=== PATIENT | female | born 1950 | race Caucasian/White ===

== ENCOUNTER 2023-05-04 19:12 | Emergency (ER) | payer MEDICARE, OTHER, SELFPAY ==
[2023-05-04 19:32] VITALS: BP 165/90; PULSE 105; RESP 18; TEMP 37; O2SAT 96; BMI 28.8
--- NOTE | 2023-05-04 19:34 | ED.URI1 ---
HPI - URI/Sore Throat General Chief Complaint: Shortness of Breath/Dyspnea Stated Complaint: URTI Time Seen by Provider: 05/04/23 19:27 History of Present Illness HPI Narrative: 72-year-old female presents to the emergency department for dry cough. She has had it for 2 to 3 days and she being seen here with her who has the same symptoms. She is worried about having COVID. No vomiting or diarrhea. She has not had a known fever. Related Data Home Medications Medication Instructions Recorded Confirmed amlodipine 5 mg tablet 5 mg PO DAILY 05/04/23 05/04/23 betamethasone dipropionate 0.05 % 1 applic topical DAILY PRN skin 05/04/23 05/04/23 topical ointment irritation lisinopril PO DAILY 05/04/23 metformin 500 mg tablet 500 mg PO DAILY 05/04/23 05/04/23 Previous Rx's Medication Instructions Recorded nirmatrelvir 300 mg (150 mg See Rx Instructions PO .COMPLEX 05/04/23 x2)-ritonavir 100 mg tablet,dose #30 ea pack (Paxlovid) Allergies Allergy/AdvReac Type Severity Reaction Status Date / Time No Known Drug Allergies Allergy Verified 05/04/23 19:36 Review of Systems ROS Narrative A ten point review of systems is negative except as noted above. PFSH PFSH Social History Smoking status: Current every day smoker Exam Narrative Exam Narrative: Nurses note and vital signs reviewed and patient is not hypoxic. General: The patient appears well and in no apparent distress. Patient is sitting on the examination chair. She is speaking in full sentences Skin: Warm, dry, no pallor noted. There is no rash noted. Head: Normocephalic, atraumatic Eye: Normal conjunctiva, no drainage Ears, Nose, Mouth, and Throat: oral mucosa is moist. Nares patent. Cardiovascular: Regular Rate and Rhythm Respiratory: Patient is in no distress, no accessory muscle use, lungs are clear to auscultation, no wheezing, rales or rhonchi Back: non-tender GI: Soft and nontender Musculoskeletal: The patient has no evidence of calf tenderness, no pitting edema, symmetrical pulses noted bilaterally Neurological: A&O, normal speech Psychiatric: Cooperative Constitutional Vital Signs, click to edit/add: Last Vital Signs Temp 98.6 F 05/04/23 19:32 Pulse 105 H 05/04/23 19:32 Resp 18 05/04/23 19:32 BP 165/90 H 05/04/23 19:32 Pulse Ox 97 05/04/23 19:46 O2 Del Method Room Air 05/04/23 19:46 Course Vital Signs Vital signs: Vital Signs Temperature 98.6 F 05/04/23 19:32 Pulse Rate 105 H 05/04/23 19:32 Respiratory Rate 18 05/04/23 19:32 Blood Pressure 165/90 H 05/04/23 19:32 Pulse Oximetry 96 05/04/23 19:32 Oxygen Delivery Method Room Air 05/04/23 19:32 Temperature 98.6 F 05/04/23 19:32 Pulse Rate 105 H 05/04/23 19:32 Respiratory Rate 18 05/04/23 19:32 Blood Pressure 165/90 H 05/04/23 19:32 Pulse Oximetry 97 05/04/23 19:46 Oxygen Delivery Method Room Air 05/04/23 19:46 MDM - URI/Sore Throat MDM Narrative Medical decision making narrative: The patient has tested positive for COVID and is requesting Paxlovid and she is prescribed Paxlovid. Further workup is not indicated. Treatment diagnosis and follow-up were discussed with the patient. Differential Diagnosis Differential diagnosis: Likely upper respiratory infection, viral infection, influenza and other (COVID) Lab Data Attestation: I reviewed the patient's lab results. Labs: Lab Results 05/04/23 Range/Units 19:30 Influenza Type A Ag Negative Influenza Type B Ag Negative SARS-CoV-2 Ag (CV2AG) Positive A (NEGATIVE) Discharge Plan Discharge Chief Complaint: Shortness of Breath/Dyspnea Clinical Impression: COVID-19 Patient Disposition: Home, Self-Care Time of Disposition Decision: 20:18 Condition: Good Mode of Transportation: Private Vehicle Prescriptions / Home Meds: New Paxlovid 300 mg (150 mg x 2)-100 mg tablets,dose pack See Rx Instructions .ROUTE .COMPLEX Qty: 30 0RF Rx Instructions: take TWO 150 mg tablets of nirmatrelvir with ONE 100 mg tablet of ritonavir twice daily for 5 days No Action amlodipine 5 mg tablet 5 mg PO DAILY betamethasone dipropionate 0.05 % ointment 1 applic TOPICAL DAILY PRN (Reason: skin irritation) lisinopril PO DAILY metformin 500 mg tablet 500 mg PO DAILY Instructions: COVID-19 (Coronavirus Disease 2019) (ED), COVID-19: Slow the Coronavirus Spread (ED), Face Coverings (Masks) and COVID-19 (ED), How to Recover from COVID-19 at Home (ED) Stand Alone Forms: Portal Instructions Referrals: VALENTINA BRICENO [Primary Care Provider] - 1 week
[2023-05-04 19:46] VITALS: O2SAT 97
[2023-05-04 20:07] LABS: Influenza Virus A Antigen Negative; Influenza Virus B Antigen Negative; Internal Control Within Normal Limits; SARS-CoV-2 Ag POSITIVE (NEGATIVE)
== END 2023-05-04 20:46 | disposition home or self-care (01) ==
PROVIDERS: Emergency Provider Emergency Medicine; PCP Family Medicine
DX: U07.1 COVID-19 (principal); R06.02 Shortness of breath; Z79.84 Long term (current) use of oral hypoglycemic drugs; F17.200 Nicotine dependence, unspecified, uncomplicated
CPT/HCPCS: 87804; 87811; 99283